=== PATIENT | female | born 1970 | race Caucasian/White ===

== ENCOUNTER 2021-10-02 12:41 | Inpatient (IN) | payer MEDICAID ==
[~2021-10-02] VITALS: Ht 160 cm; Wt 89.8 kg
[~2021-10-02 12:41] MED LIST: NOCURR
[2021-10-02] MEDS ORDERED: ZOLPIDEM TARTRATE 10 MG TABLET PO PRN (13:00)
[2021-10-02] MEDS ORDERED: HALOPERIDOL 5 MG TABLET PO PRN (13:00)
[2021-10-02 14:01] LABS: GLUCOMETER DEV NAME(LOC) POC.BV
[2021-10-02 16:22] VITALS: BP 128/83
[2021-10-02] MEDS: LORazepam 2 MG TABLET PO PRN (19:35)
[2021-10-02 20:31] VITALS: BP 111/58
[2021-10-02 21:31] VITALS: BP 140/74
[2021-10-02 22:31] VITALS: BP 114/59
[2021-10-03] VITALS (10 sets, daily range): BP systolic 110–133; BP diastolic 67–82
[2021-10-03] MEDS: LORazepam 2 MG TABLET PO PRN ×2 (05:13→11:29)
[2021-10-03 08:06] LABS: BASOPHILS % (AUTO) 0.1 % (0.0-2.0); EOSINOPHILS % (AUTO) 0.2 % (1.0-6.0); HEMATOCRIT 33.9 % (36-46); HEMOGLOBIN 11.5 g/dL (12.0-16.0); LYMPHOCYTES # (AUTO) 0.7 K/uL (1.0-4.8); LYMPHOCYTES % (AUTO) 16.9 % (22.0-44.0); MEAN CORPUSCULAR HEMOGLOBIN 32.3 pg (26.0-34.0); MEAN CORPUSCULAR HGB CONC 33.9 G/dL (31.0-37.0); MEAN CORPUSCULAR VOLUME 95 fL (80-100); MONOCYTES # (AUTO) 0.8 K/uL (0.1-1.0); MONOCYTES % (AUTO) 18.9 % (2.0-9.0); NEUTROPHILS # (AUTO) 2.7 K/uL (1.8-7.7); NEUTROPHILS % (AUTO) 63.9 % (40.0-70.0); PLATELET COUNT (AUTO) 251 K/uL (150-450); RED BLOOD CELL COUNT(AUTO) 3.56 MIL/uL (4.00-5.20); RED CELL DISTRIBUTION WIDTH 14.7 % (11.5-14.5)
[2021-10-03 08:15] LABS: HEMOGLOBIN A1C 5.7 % (3.8-5.6)
[2021-10-03 08:36] LABS: ALANINE AMINOTRANSFERASE 26 U/L (12-78); ALBUMIN 3.2 g/dL (3.4-5.0); ALKALINE PHOSPHATASE 71 U/L (46-116); ANION GAP 9 mmol/L (8-16); ASPARTATE AMINOTRANSFERASE 21 U/L (15-37); BILIRUBIN,TOTAL 0.3 mg/dL (0.1-1.0); CALCIUM, TOTAL 8.7 mg/dL (8.8-10.5); CARBON DIOXIDE 28 mmol/L (22-29); CHLORIDE 104 mmol/L (98-107); CHOLESTEROL 160 mg/dL (131-200); CREATININE 0.68 mg/dL (0.60-1.30); FREE T4 (FREE THYROXINE) 1.03 ng/dL (0.76-1.46); GLOMERULAR FILTR. RATE CALC > 60 mL/min (>60); GLUCOSE,RANDOM 91 mg/dL (70-110); HCG,QUANTITATIVE 2 mIU/mL (0-6); HDL CHOLESTEROL 81 mg/dL (40-60); LDL CHOL (CALC.) 70 mg/dL (0-130); POTASSIUM 3.6 mmol/L (3.5-5.1); SODIUM SERUM 141 mmol/L (136-145); TOTAL PROTEIN, SERUM 6.7 g/dL (6.4-8.2); TRIGLYCERIDES 46 mg/dL (15-150); UREA NITROGEN, BLOOD 13 mg/dL (7-18)
[2021-10-03] MEDS ORDERED: LORazepam 2 MG TABLET PO PRN (12:00)
[2021-10-03] MEDS: FLUoxetine HCL 20 MG CAPSULE PO SCH (14:20)
[2021-10-03] MEDS ORDERED: MAGNESIUM HYDROXIDE SUSPENSION 30 ML UDCUP PO PRN (16:30)
[2021-10-03] MEDS ORDERED: LOPERAMIDE HCL 2 MG CAPSULE PO PRN (16:30)
[2021-10-03] MEDS ORDERED: DOCUSATE SODIUM 100 MG CAPSULE PO PRN (16:30)
[2021-10-03] MEDS ORDERED: ONDANSETRON HCL 4 MG TABLET PO PRN (16:30)
[2021-10-03] MEDS ORDERED: MAG HYDROX/AL HYDROX/SIMETH ES 30 ML SUSPENSION UDCUP PO PRN (16:30)
[2021-10-03] MEDS ORDERED: NICOTINE 14 MG/24 HOUR PATCH TD PRN (16:30)
[2021-10-03] MEDS ORDERED: GuaiFENesin/D-METHORPHAN [SUGAR-FREE] 200-20MG/10 ML SYRUP UDCUP PO PRN (16:30)
[2021-10-03] MEDS ORDERED: CloNIDine HCL 0.1 MG TABLET PO PRN (16:30)
[2021-10-03] MEDS ORDERED: ACETAMINOPHEN 325 MG TABLET PO PRN (16:30)
[2021-10-03] MEDS ORDERED: IBUPROFEN 400 MG TABLET PO PRN (16:30)
[2021-10-03] MEDS ORDERED: PETROLATUM,WHITE 28 GM JELLY TP PRN (16:30)
[2021-10-03] MEDS ORDERED: ALBUTEROL SULFATE HFA 90 MCG/PUFF 8 GM INHALER IH PRN (16:30)
[2021-10-03] MEDS: TraZODone HCL 50 MG TABLET PO SCH (20:28)
[2021-10-04 01:28] VITALS: BP 115/68
[2021-10-04 06:19] VITALS: BP 115/68
[2021-10-04 07:23] LABS: APPEARANCE,URINE CLEAR (CLEAR); BILIRUBIN,URINE NEGATIVE (NEGATIVE); GLUCOSE, URINE (UA) NEGATIVE (NEGATIVE); KETONES,URINE NEGATIVE (NEGATIVE); LEUKOCYTE ESTERASE ,URINE NEGATIVE (NEGATIVE); NITRATE,URINE NEGATIVE (NEGATIVE); OCCULT BLOOD,URINE NEGATIVE (NEGATIVE); PROTEIN,URINE NEGATIVE (NEGATIVE); SPECIFIC GRAVITIY, URINE 1.016 (1.003-1.030); UROBILINOGEN,URINE <=1.0 mg/dL (<=1.0)
[2021-10-04] MEDS ORDERED: GuaiFENesin/D-METHORPHAN [SUGAR-FREE] 200-20MG/10 ML SYRUP UDCUP PO PRN (07:30)
[2021-10-04] MEDS ORDERED: LOPERAMIDE HCL 2 MG CAPSULE PO PRN (07:30)
[2021-10-04] MEDS ORDERED: CYANOCOBALAMIN 1,000 MCG/ML VIAL IM ONE (07:30)
[2021-10-04 07:32] LABS: AMPHET/METH SCREEN,URINE NEGATIVE (NEGATIVE); BARBITURATE SCREEN, URINE NEGATIVE (NEGATIVE); BENZODIAZEPINES SCREEN,URINE NEGATIVE (NEGATIVE); CANNABINOID SCREEN,URINE NEGATIVE (NEGATIVE); COCAINE SCREEN,URINE NEGATIVE (NEGATIVE); METHADONE SCREEN, URINE NEGATIVE (NEGATIVE); OPIATE SCREEN,URINE NEGATIVE (NEGATIVE)
[2021-10-04 07:33] LABS: PHENCYCLIDINE SCREEN,URINE NEGATIVE (NEGATIVE)
[2021-10-04] MEDS: LORazepam 2 MG TABLET PO PRN (07:33)
[2021-10-04] MEDS: LORazepam 2 MG TABLET PO SCH ×5 (07:33→20:43)
[2021-10-04 08:37] VITALS: BP 120/70
[2021-10-04] MEDS: MULTIVITAMINS WITH MINERALS, THERAPEUTIC TABLET PO SCH (09:14)
[2021-10-04] MEDS: FOLIC ACID 1 MG TABLET PO SCH (09:14)
[2021-10-04] MEDS: THIAMINE 100 MG TABLET PO SCH ×2 (09:14→16:47)
[2021-10-04] MEDS: FLUoxetine HCL 20 MG CAPSULE PO SCH (09:16)
[2021-10-04 16:23] VITALS: BP 113/81
[2021-10-04] MEDS: TraZODone HCL 50 MG TABLET PO SCH (20:43)
[2021-10-05] VITALS (7 sets, daily range): BP systolic 105–118; BP diastolic 60–77
[2021-10-05] MEDS: MULTIVITAMINS WITH MINERALS, THERAPEUTIC TABLET PO SCH (08:25)
[2021-10-05] MEDS: FOLIC ACID 1 MG TABLET PO SCH (08:26)
[2021-10-05] MEDS: FLUoxetine HCL 20 MG CAPSULE PO SCH (08:26)
[2021-10-05] MEDS: THIAMINE 100 MG TABLET PO SCH ×2 (08:26→16:38)
[2021-10-05] MEDS: LORazepam 2 MG TABLET PO SCH ×4 (08:26→20:32)
[2021-10-05] MEDS: LORazepam 2 MG TABLET PO PRN (11:03)
[2021-10-05] MEDS: TraZODone HCL 50 MG TABLET PO SCH (20:33)
[2021-10-06 00:22] VITALS: BP 101/64
[2021-10-06 02:46] VITALS: BP 101/64
[2021-10-06] MEDS ORDERED: LORazepam 1 MG TABLET PO PRN (07:00)
[2021-10-06 08:00] VITALS: BP 109/69
[2021-10-06] MEDS: MULTIVITAMINS WITH MINERALS, THERAPEUTIC TABLET PO SCH (08:18)
[2021-10-06] MEDS: FLUoxetine HCL 20 MG CAPSULE PO SCH (08:18)
[2021-10-06] MEDS: LORazepam 1 MG TABLET PO SCH ×4 (08:18→20:42)
[2021-10-06] MEDS: FOLIC ACID 1 MG TABLET PO SCH (08:18)
[2021-10-06] MEDS: THIAMINE 100 MG TABLET PO SCH ×2 (08:18→16:32)
[2021-10-06 08:23] VITALS: BP 109/69
[2021-10-06] MEDS: HydrOXYzine PAMOATE 50 MG CAPSULE PO PRN (09:33)
[2021-10-06 16:24] VITALS: BP 121/65
[2021-10-06 16:25] VITALS: BP 121/65
[2021-10-06] MEDS: TraZODone HCL 50 MG TABLET PO SCH (20:38)
[2021-10-07 01:40] VITALS: BP 116/64
[2021-10-07 01:43] VITALS: BP 116/64
[2021-10-07 08:05] VITALS: BP 137/58
[2021-10-07] MEDS: LORazepam 1 MG TABLET PO PRN ×2 (08:20→17:11)
[2021-10-07] MEDS: MULTIVITAMINS WITH MINERALS, THERAPEUTIC TABLET PO SCH (08:21)
[2021-10-07] MEDS: FLUoxetine HCL 20 MG CAPSULE PO SCH (08:21)
[2021-10-07] MEDS: THIAMINE 100 MG TABLET PO SCH ×2 (08:21→17:04)
[2021-10-07] MEDS: FOLIC ACID 1 MG TABLET PO SCH (08:21)
[2021-10-07 08:26] VITALS: BP 137/58
[2021-10-07] MEDS: HydrOXYzine PAMOATE 50 MG CAPSULE PO PRN (10:02)
[2021-10-07] MEDS: NALTREXONE HCL 50 MG TABLET PO SCH (14:48)
[2021-10-07 16:00] VITALS: BP 109/73
[2021-10-07 16:23] VITALS: BP 109/73
[2021-10-07] MEDS: TraZODone HCL 50 MG TABLET PO SCH (20:58)
[2021-10-08 00:47] VITALS: BP 111/68
[2021-10-08 00:49] VITALS: BP 111/68
[2021-10-08] MEDS: FOLIC ACID 1 MG TABLET PO SCH (08:37)
[2021-10-08] MEDS: MULTIVITAMINS WITH MINERALS, THERAPEUTIC TABLET PO SCH (08:37)
[2021-10-08] MEDS: FLUoxetine HCL 20 MG CAPSULE PO SCH (08:37)
[2021-10-08] MEDS: NALTREXONE HCL 50 MG TABLET PO SCH (08:37)
[2021-10-08] MEDS: THIAMINE 100 MG TABLET PO SCH (08:37)
[2021-10-08] MEDS: HydrOXYzine PAMOATE 50 MG CAPSULE PO PRN (08:44)
[2021-10-08 09:00] VITALS: BP 106/66
[2021-10-08 11:26] LABS: GLUCOMETER DEV NAME(LOC) POC.BV
[2021-10-08] MEDS ORDERED: TRAZ-252 PO (13:50)
[2021-10-08] MEDS ORDERED: THIA100T80 PO (13:50)
[2021-10-08] MEDS ORDERED: PROZ20 PO (13:50)
[2021-10-08] MEDS ORDERED: NALT50TA PO (13:50)
== END 2021-10-08 14:25 | disposition home or self-care (01) | DRG 751 ==
LOC: B2S 13:39
PROVIDERS: ADMIT Psychiatry & Neurology Child & Adolescent Psychiatry; ATTEND Psychiatry & Neurology Child & Adolescent Psychiatry
DX: F33.2 Major depressive disorder, recurrent severe without psychotic features (principal); D64.9 Anemia, unspecified; Z20.822 Contact with and (suspected) exposure to COVID-19; D72.819 Decreased white blood cell count, unspecified; E66.9 Obesity, unspecified; E78.5 Hyperlipidemia, unspecified; F10.10 Alcohol abuse, uncomplicated; F41.0 Panic disorder [episodic paroxysmal anxiety]; I10 Essential (primary) hypertension; M19.90 Unspecified osteoarthritis, unspecified site; Z68.35 Body mass index [BMI] 35.0-35.9, adult; Z59.00 Homelessness unspecified
CPT/HCPCS: 80053; 80061; 80307; 81003; 83036; 84436; 84439; 84443; 84702; 85025; G0480; J3420

== ENCOUNTER 2021-10-27 12:09 | Inpatient (IN) | payer MEDICAID ==
[~2021-10-27] VITALS: Ht 160 cm; Wt 85.9 kg
[~2021-10-27 12:09] MED LIST changes: +NALT50TA PO; -NOCURR; +PROZ20 PO; +THIA100T80 PO; +TRAZ-252 PO
[2021-10-27 19:30] VITALS: BP 138/66
[2021-10-27] MEDS ORDERED: ZOLPIDEM TARTRATE 10 MG TABLET PO PRN (19:30)
[2021-10-27] MEDS: LORazepam 2 MG TABLET PO PRN (19:57)
[2021-10-27 20:03] VITALS: BP 138/66
[2021-10-27 20:30] VITALS: BP 135/67
[2021-10-27 21:30] VITALS: BP 130/75
[2021-10-27 22:30] VITALS: BP 115/66
[2021-10-28] VITALS (8 sets, daily range): BP systolic 103–145; BP diastolic 60–98
[2021-10-28] MEDS ORDERED: PNEUMOCOCCAL VACCINE POLYVALENT 0.5 ML VIAL [PPSV23] IM. ONE (01:45)
[2021-10-28] MEDS: LORazepam 2 MG TABLET PO PRN ×3 (06:04→17:17)
[2021-10-28 07:34] LABS: BASOPHILS % (AUTO) 0.4 % (0.0-2.0); EOSINOPHILS % (AUTO) 1.2 % (1.0-6.0); HEMATOCRIT 34.3 % (36-46); HEMOGLOBIN 11.5 g/dL (12.0-16.0); LYMPHOCYTES # (AUTO) 1.2 K/uL (1.0-4.8); LYMPHOCYTES % (AUTO) 32.4 % (22.0-44.0); MEAN CORPUSCULAR HEMOGLOBIN 32.5 pg (26.0-34.0); MEAN CORPUSCULAR HGB CONC 33.5 G/dL (31.0-37.0); MEAN CORPUSCULAR VOLUME 97 fL (80-100); MONOCYTES # (AUTO) 0.4 K/uL (0.1-1.0); MONOCYTES % (AUTO) 10.2 % (2.0-9.0); NEUTROPHILS # (AUTO) 2.1 K/uL (1.8-7.7); NEUTROPHILS % (AUTO) 55.8 % (40.0-70.0); PLATELET COUNT (AUTO) 246 K/uL (150-450); RED BLOOD CELL COUNT(AUTO) 3.53 MIL/uL (4.00-5.20); RED CELL DISTRIBUTION WIDTH 14.2 % (11.5-14.5)
[2021-10-28 07:59] LABS: HEMOGLOBIN A1C 5.4 % (3.8-5.6)
[2021-10-28 08:04] LABS: ALANINE AMINOTRANSFERASE 21 U/L (12-78); ALBUMIN 3.1 g/dL (3.4-5.0); ALKALINE PHOSPHATASE 61 U/L (46-116); ANION GAP 4 mmol/L (8-16); ASPARTATE AMINOTRANSFERASE 17 U/L (15-37); BILIRUBIN,TOTAL 0.3 mg/dL (0.1-1.0); CALCIUM, TOTAL 8.6 mg/dL (8.8-10.5); CARBON DIOXIDE 30 mmol/L (22-29); CHLORIDE 105 mmol/L (98-107); CHOL/HDL RATIO 2.3 (3.9-5.7); CHOLESTEROL 144 mg/dL (131-200); CREATININE 0.64 mg/dL (0.60-1.30); GLOMERULAR FILTR. RATE CALC > 60 mL/min (>60); GLUCOSE,RANDOM 80 mg/dL (70-110); HDL CHOLESTEROL 64 mg/dL (40-60); LDL CHOL (CALC.) 65 mg/dL (0-130); POTASSIUM 3.8 mmol/L (3.5-5.1); SODIUM SERUM 139 mmol/L (136-145); THYROID STIMULATING HORMONE 0.45 uIU/mL (0.36-3.74); TOTAL PROTEIN, SERUM 6.5 g/dL (6.4-8.2); TRIGLYCERIDES 73 mg/dL (15-150); UREA NITROGEN, BLOOD 16 mg/dL (7-18)
[2021-10-28] MEDS ORDERED: LORazepam 2 MG TABLET PO ONE (11:00)
[2021-10-28] MEDS ORDERED: GuaiFENesin/D-METHORPHAN [SUGAR-FREE] 200-20MG/10 ML SYRUP UDCUP PO PRN (11:45)
[2021-10-28] MEDS ORDERED: MAGNESIUM HYDROXIDE SUSPENSION 30 ML UDCUP PO PRN (11:45)
[2021-10-28] MEDS ORDERED: CloNIDine HCL 0.1 MG TABLET PO PRN (11:45)
[2021-10-28] MEDS ORDERED: MAG HYDROX/AL HYDROX/SIMETH ES 30 ML SUSPENSION UDCUP PO PRN (11:45)
[2021-10-28] MEDS ORDERED: DOCUSATE SODIUM 100 MG CAPSULE PO PRN (11:45)
[2021-10-28] MEDS ORDERED: IBUPROFEN 400 MG TABLET PO PRN (11:45)
[2021-10-28] MEDS ORDERED: NICOTINE 14 MG/24 HOUR PATCH TD PRN (11:45)
[2021-10-28] MEDS ORDERED: ALBUTEROL SULFATE HFA 90 MCG/PUFF 8 GM INHALER IH PRN (11:45)
[2021-10-28] MEDS ORDERED: ACETAMINOPHEN 325 MG TABLET PO PRN (11:45)
[2021-10-28] MEDS ORDERED: LOPERAMIDE HCL 2 MG CAPSULE PO PRN (11:45)
[2021-10-28] MEDS ORDERED: ONDANSETRON HCL 4 MG TABLET PO PRN (11:45)
[2021-10-28] MEDS ORDERED: PETROLATUM,WHITE 28 GM JELLY TP PRN (11:45)
[2021-10-28] MEDS: HALOPERIDOL 5 MG TABLET PO PRN (12:47)
[2021-10-28] MEDS: THIAMINE 100 MG TABLET PO SCH (16:27)
[2021-10-28] MEDS: FLUoxetine HCL 20 MG CAPSULE PO SCH (20:11)
[2021-10-28] MEDS: TraZODone HCL 50 MG TABLET PO SCH (20:35)
[2021-10-29 02:00] VITALS: BP 120/68
[2021-10-29 06:42] VITALS: BP 128/63
[2021-10-29 06:46] VITALS: BP 128/63
[2021-10-29 07:16] LABS: AMPHET/METH SCREEN,URINE NEGATIVE (NEGATIVE); BARBITURATE SCREEN, URINE NEGATIVE (NEGATIVE); BENZODIAZEPINES SCREEN,URINE POSITIVE (NEGATIVE); CANNABINOID SCREEN,URINE NEGATIVE (NEGATIVE); COCAINE SCREEN,URINE NEGATIVE (NEGATIVE); METHADONE SCREEN, URINE NEGATIVE (NEGATIVE); OPIATE SCREEN,URINE NEGATIVE (NEGATIVE)
[2021-10-29 07:30] LABS: PHENCYCLIDINE SCREEN,URINE NEGATIVE (NEGATIVE)
[2021-10-29 08:04] VITALS: BP 106/66
[2021-10-29 08:08] LABS: APPEARANCE,URINE CLEAR (CLEAR); BILIRUBIN,URINE NEGATIVE (NEGATIVE); GLUCOSE, URINE (UA) NEGATIVE (NEGATIVE); KETONES,URINE NEGATIVE (NEGATIVE); LEUKOCYTE ESTERASE ,URINE NEGATIVE (NEGATIVE); NITRATE,URINE NEGATIVE (NEGATIVE); OCCULT BLOOD,URINE NEGATIVE (NEGATIVE); PH,URINE 5.5 (5.0-8.0); PROTEIN,URINE NEGATIVE (NEGATIVE); SPECIFIC GRAVITIY, URINE 1.004 (1.003-1.030); UROBILINOGEN,URINE <=1.0 mg/dL (<=1.0)
[2021-10-29] MEDS: THIAMINE 100 MG TABLET PO SCH ×2 (08:18→16:00)
[2021-10-29] MEDS: FLUoxetine HCL 20 MG CAPSULE PO SCH (08:18)
[2021-10-29 08:49] LABS: BACTERIA,URINE None Seen /HPF (None Seen); RBC,URINE None Seen /HPF (0-2); WBC,URINE None Seen /HPF (0-5)
[2021-10-29] MEDS: LORazepam 2 MG TABLET PO PRN ×2 (10:37→15:57)
[2021-10-29 16:08] VITALS: BP 109/64
[2021-10-29 16:59] VITALS: BP 109/64
[2021-10-29] MEDS: TraZODone HCL 50 MG TABLET PO SCH (20:15)
[2021-10-30 00:28] VITALS: BP 105/63
[2021-10-30 03:19] VITALS: BP 118/64
[2021-10-30 08:03] VITALS: BP 118/67
[2021-10-30] MEDS: FLUoxetine HCL 20 MG CAPSULE PO SCH (08:23)
[2021-10-30] MEDS: THIAMINE 100 MG TABLET PO SCH ×2 (08:23→16:02)
[2021-10-30] MEDS: LORazepam 2 MG TABLET PO PRN (11:57)
[2021-10-30] MEDS: HALOPERIDOL 5 MG TABLET PO PRN (12:36)
[2021-10-30 16:03] VITALS: BP 116/66
[2021-10-30] MEDS: TraZODone HCL 50 MG TABLET PO SCH (20:22)
[2021-10-31 00:41] VITALS: BP 111/64
[2021-10-31] MEDS: FLUoxetine HCL 20 MG CAPSULE PO SCH (08:09)
[2021-10-31] MEDS: THIAMINE 100 MG TABLET PO SCH ×2 (08:09→17:02)
[2021-10-31 08:11] VITALS: BP 116/65
[2021-10-31] MEDS: LORazepam 2 MG TABLET PO PRN ×2 (10:31→15:18)
[2021-10-31] MEDS: HALOPERIDOL 5 MG TABLET PO PRN ×2 (10:31→15:18)
[2021-10-31] MEDS: TraZODone HCL 50 MG TABLET PO SCH (20:08)
[2021-11-01 05:43] VITALS: BP 109/69
[2021-11-01 08:10] VITALS: BP 109/71
[2021-11-01] MEDS: FLUoxetine HCL 20 MG CAPSULE PO SCH (08:10)
[2021-11-01] MEDS: THIAMINE 100 MG TABLET PO SCH ×2 (08:10→16:02)
[2021-11-01] MEDS: HALOPERIDOL 5 MG TABLET PO PRN ×2 (09:57→16:02)
[2021-11-01] MEDS: LORazepam 2 MG TABLET PO PRN ×2 (09:57→16:03)
[2021-11-01 16:18] VITALS: BP 115/66
[2021-11-01] MEDS: TraZODone HCL 50 MG TABLET PO SCH (20:03)
[2021-11-02 05:44] VITALS: BP 109/66
[2021-11-02 08:21] VITALS: BP 96/63
[2021-11-02] MEDS: THIAMINE 100 MG TABLET PO SCH ×2 (08:24→16:15)
[2021-11-02] MEDS: FLUoxetine HCL 20 MG CAPSULE PO SCH (08:24)
[2021-11-02 09:12] LABS: GLUCOMETER DEV NAME(LOC) POC.BV
[2021-11-02] MEDS: HALOPERIDOL 5 MG TABLET PO PRN ×2 (09:57→13:11)
[2021-11-02] MEDS: LORazepam 2 MG TABLET PO PRN ×2 (09:57→13:12)
[2021-11-02 16:06] VITALS: BP 116/66
[2021-11-02] MEDS: TraZODone HCL 50 MG TABLET PO SCH (20:11)
[2021-11-03 00:18] VITALS: BP 111/63
[2021-11-03 08:07] VITALS: BP 117/100
[2021-11-03] MEDS: FLUoxetine HCL 20 MG CAPSULE PO SCH (08:08)
[2021-11-03] MEDS: NALTREXONE HCL 50 MG TABLET PO SCH (08:08)
[2021-11-03] MEDS: THIAMINE 100 MG TABLET PO SCH ×2 (08:08→16:19)
[2021-11-03] MEDS: LORazepam 2 MG TABLET PO PRN ×2 (09:56→15:37)
[2021-11-03] MEDS: HALOPERIDOL 5 MG TABLET PO PRN (09:57)
[2021-11-03 16:15] VITALS: BP 117/64
[2021-11-03] MEDS: TraZODone HCL 50 MG TABLET PO SCH (20:22)
[2021-11-04 05:30] VITALS: BP 109/62
[2021-11-04 08:05] VITALS: BP 109/67
[2021-11-04] MEDS: THIAMINE 100 MG TABLET PO SCH ×2 (08:24→16:34)
[2021-11-04] MEDS: NALTREXONE HCL 50 MG TABLET PO SCH (08:24)
[2021-11-04] MEDS: FLUoxetine HCL 20 MG CAPSULE PO SCH (08:24)
[2021-11-04] MEDS: LORazepam 2 MG TABLET PO PRN ×2 (10:38→17:13)
[2021-11-04 16:25] VITALS: BP 102/67
[2021-11-04 17:13] VITALS: BP 137/79
[2021-11-04] MEDS: TraZODone HCL 50 MG TABLET PO SCH (20:23)
[2021-11-05 00:35] VITALS: BP 104/65
[2021-11-05 08:06] VITALS: BP 110/69
[2021-11-05] MEDS: FLUoxetine HCL 20 MG CAPSULE PO SCH (08:34)
[2021-11-05] MEDS: NALTREXONE HCL 50 MG TABLET PO SCH (08:35)
[2021-11-05] MEDS: THIAMINE 100 MG TABLET PO SCH (08:35)
[2021-11-05] MEDS ORDERED: TRAZ-252 PO (22:45)
[2021-11-05] MEDS ORDERED: PROZ20 PO (22:45)
[2021-11-05] MEDS ORDERED: NALT50TA PO (22:45)
== END 2021-11-05 13:15 | disposition home or self-care (01) | DRG 751 ==
LOC: B2S 18:59
PROVIDERS: ADMIT Psychiatry & Neurology Child & Adolescent Psychiatry; ATTEND Psychiatry & Neurology Child & Adolescent Psychiatry
PROC: 3E0234Z Introduction of Serum, Toxoid and Vaccine into Muscle, Percutaneous Approach (ICD-10-PCS; principal; 2021-10-28)
DX: F33.2 Major depressive disorder, recurrent severe without psychotic features (principal); R45.851 Suicidal ideations; E78.5 Hyperlipidemia, unspecified; F41.9 Anxiety disorder, unspecified; I10 Essential (primary) hypertension; Z20.822 Contact with and (suspected) exposure to COVID-19; M17.10 Unilateral primary osteoarthritis, unspecified knee; Z59.00 Homelessness unspecified; Y90.9 Presence of alcohol in blood, level not specified; F10.139 Alcohol abuse with withdrawal, unspecified; Z71.51 Drug abuse counseling and surveillance of drug abuser; Z23 Encounter for immunization
CPT/HCPCS: 80053; 80061; 80307; 81001; 83036; 84439; 84443; 85025; 87081; 90732

== ENCOUNTER 2022-05-08 17:19 | Inpatient (IN) | payer MEDICAID, OTHER ==
[~2022-05-08] VITALS: Ht 160 cm; Wt 81.2 kg
[~2022-05-08 17:19] MED LIST changes: -THIA100T80 PO
[2022-05-08 20:46] LABS: GLUCOMETER DEV NAME(LOC) POC.BV
[2022-05-08] MEDS ORDERED: INFLUENZA VIRUS VACCINE QVS 2022-23 (6MO+)/PF 60 MCG/0.5 ML SYRINGE IM. ONE (21:15)
[2022-05-09] VITALS (8 sets, daily range): BP systolic 100–124; BP diastolic 50–67
[2022-05-09] MEDS ORDERED: ZOLPIDEM TARTRATE 10 MG TABLET PO PRN (00:30)
[2022-05-09] MEDS: LORazepam 2 MG TABLET PO PRN ×2 (01:09→08:41)
[2022-05-09] MEDS: HALOPERIDOL 5 MG TABLET PO PRN (08:41)
[2022-05-09] MEDS ORDERED: GuaiFENesin/D-METHORPHAN [SUGAR-FREE] 200-20MG/10 ML SYRUP UDCUP PO PRN (09:45)
[2022-05-09] MEDS ORDERED: LOPERAMIDE HCL 2 MG CAPSULE PO PRN (09:45)
[2022-05-09] MEDS ORDERED: LORazepam 2 MG TABLET PO PRN (09:45)
[2022-05-09] MEDS ORDERED: CYANOCOBALAMIN 1,000 MCG/ML VIAL IM ONE (09:45)
[2022-05-09] MEDS ORDERED: ACETAMINOPHEN 325 MG TABLET PO PRN (10:45)
[2022-05-09] MEDS: FOLIC ACID 1 MG TABLET PO SCH (11:10)
[2022-05-09] MEDS: MULTIVITAMINS WITH MINERALS, THERAPEUTIC TABLET PO SCH (11:10)
[2022-05-09] MEDS: THIAMINE 100 MG TABLET PO SCH ×2 (11:11→17:10)
[2022-05-09] MEDS: TraZODone HCL 50 MG TABLET PO SCH (20:09)
[2022-05-10] VITALS (8 sets, daily range): BP systolic 94–113; BP diastolic 49–84
[2022-05-10] MEDS ORDERED: LORazepam 2 MG TABLET PO PRN (07:00)
[2022-05-10] MEDS ORDERED: MAG HYDROX/AL HYDROX/SIMETH ES 30 ML SUSPENSION UDCUP PO PRN (07:00)
[2022-05-10] MEDS ORDERED: DOCUSATE SODIUM 100 MG CAPSULE PO PRN (07:00)
[2022-05-10] MEDS ORDERED: LOPERAMIDE HCL 2 MG CAPSULE PO PRN (07:00)
[2022-05-10] MEDS ORDERED: CloNIDine HCL 0.1 MG TABLET PO PRN (07:00)
[2022-05-10] MEDS ORDERED: ONDANSETRON HCL 4 MG TABLET PO PRN (07:00)
[2022-05-10] MEDS ORDERED: ALBUTEROL SULFATE HFA 90 MCG/PUFF 8 GM INHALER IH PRN (07:00)
[2022-05-10] MEDS ORDERED: MAGNESIUM HYDROXIDE SUSPENSION 30 ML UDCUP PO PRN (07:00)
[2022-05-10] MEDS ORDERED: IBUPROFEN 400 MG TABLET PO PRN (07:00)
[2022-05-10] MEDS ORDERED: ACETAMINOPHEN 325 MG TABLET PO PRN (07:00)
[2022-05-10] MEDS ORDERED: PETROLATUM,WHITE 28 GM JELLY TP PRN (07:00)
[2022-05-10] MEDS: FLUoxetine HCL 20 MG CAPSULE PO SCH (08:56)
[2022-05-10] MEDS: FOLIC ACID 1 MG TABLET PO SCH (08:56)
[2022-05-10] MEDS: MULTIVITAMINS WITH MINERALS, THERAPEUTIC TABLET PO SCH (08:56)
[2022-05-10] MEDS: THIAMINE 100 MG TABLET PO SCH ×2 (08:56→16:16)
[2022-05-10] MEDS: LORazepam 2 MG TABLET PO SCH ×4 (08:56→21:41)
[2022-05-10] MEDS: TraZODone HCL 50 MG TABLET PO SCH (21:41)
[2022-05-11 06:45] LABS: BASOPHILS % (AUTO) 0.8 % (0.0-2.0); HEMATOCRIT 36.4 % (36-46); HEMOGLOBIN 11.8 g/dL (12.0-16.0); MEAN CORPUSCULAR HEMOGLOBIN 29.8 pg (26.0-34.0); MEAN CORPUSCULAR HGB CONC 32.5 G/dL (31.0-37.0); MEAN CORPUSCULAR VOLUME 92 fL (80-100); MONOCYTES # (AUTO) 0.5 K/uL (0.1-1.0); MONOCYTES % (AUTO) 14.8 % (2.0-9.0); NEUTROPHILS # (AUTO) 1.8 K/uL (1.8-7.7); NEUTROPHILS % (AUTO) 53.4 % (40.0-70.0); PLATELET COUNT (AUTO) 231 K/uL (150-450); RED BLOOD CELL COUNT(AUTO) 3.97 MIL/uL (4.00-5.20); RED CELL DISTRIBUTION WIDTH 16.4 % (11.5-14.5)
[2022-05-11 07:14] LABS: ALANINE AMINOTRANSFERASE 15 U/L (12-78); ALBUMIN 3.2 g/dL (3.4-5.0); ALKALINE PHOSPHATASE 64 U/L (46-116); ANION GAP 5 mmol/L (8-16); ASPARTATE AMINOTRANSFERASE 19 U/L (15-37); BILIRUBIN,TOTAL 0.3 mg/dL (0.1-1.0); CALCIUM, TOTAL 9.6 mg/dL (8.8-10.5); CARBON DIOXIDE 31 mmol/L (22-29); CHLORIDE 104 mmol/L (98-107); CHOL/HDL RATIO 2.6 (3.9-5.7); CHOLESTEROL 198 mg/dL (131-200); GLOMERULAR FILTR. RATE CALC > 60 mL/min (>60); GLUCOSE,RANDOM 91 mg/dL (70-110); HDL CHOLESTEROL 75 mg/dL (40-60); LDL CHOL (CALC.) 103 mg/dL (0-130); POTASSIUM 4.2 mmol/L (3.5-5.1); SODIUM SERUM 140 mmol/L (136-145); THYROID STIMULATING HORMONE 1.29 uIU/mL (0.36-3.74); TOTAL PROTEIN, SERUM 6.7 g/dL (6.4-8.2); TRIGLYCERIDES 100 mg/dL (15-150); UREA NITROGEN, BLOOD 14 mg/dL (7-18)
[2022-05-11 08:14] VITALS: BP 121/82
[2022-05-11] MEDS: LORazepam 2 MG TABLET PO SCH ×4 (08:15→21:04)
[2022-05-11] MEDS: THIAMINE 100 MG TABLET PO SCH ×2 (08:15→17:20)
[2022-05-11] MEDS: FOLIC ACID 1 MG TABLET PO SCH (08:15)
[2022-05-11] MEDS: MULTIVITAMINS WITH MINERALS, THERAPEUTIC TABLET PO SCH (08:15)
[2022-05-11] MEDS: FLUoxetine HCL 20 MG CAPSULE PO SCH (08:15)
[2022-05-11 09:45] VITALS: BP 100/80
[2022-05-11 20:00] VITALS: BP 108/68
[2022-05-11] MEDS: TraZODone HCL 50 MG TABLET PO SCH (21:04)
[2022-05-12] MEDS ORDERED: LORazepam 1 MG TABLET PO PRN (07:00)
[2022-05-12 08:19] VITALS: BP 100/64
[2022-05-12] MEDS: FLUoxetine HCL 20 MG CAPSULE PO SCH (08:58)
[2022-05-12] MEDS: LORazepam 1 MG TABLET PO SCH ×4 (08:58→20:13)
[2022-05-12] MEDS: FOLIC ACID 1 MG TABLET PO SCH (08:58)
[2022-05-12] MEDS: MULTIVITAMINS WITH MINERALS, THERAPEUTIC TABLET PO SCH (08:58)
[2022-05-12] MEDS: THIAMINE 100 MG TABLET PO SCH ×2 (08:58→16:01)
[2022-05-12 10:04] VITALS: BP 101/72
[2022-05-12] MEDS: TraZODone HCL 50 MG TABLET PO SCH (20:13)
[2022-05-12 20:30] VITALS: BP 115/65
[2022-05-13 08:14] VITALS: BP 100/61
[2022-05-13] MEDS: LORazepam 1 MG TABLET PO PRN ×2 (08:35→16:41)
[2022-05-13] MEDS: THIAMINE 100 MG TABLET PO SCH ×2 (08:35→16:41)
[2022-05-13] MEDS: MULTIVITAMINS WITH MINERALS, THERAPEUTIC TABLET PO SCH (08:36)
[2022-05-13] MEDS: FLUoxetine HCL 20 MG CAPSULE PO SCH (08:36)
[2022-05-13] MEDS: FOLIC ACID 1 MG TABLET PO SCH (08:36)
[2022-05-13 20:00] VITALS: BP 109/86
[2022-05-13] MEDS: TraZODone HCL 50 MG TABLET PO SCH (20:15)
[2022-05-14] VITALS (7 sets, daily range): BP systolic 105–117; BP diastolic 62–78
[2022-05-14] MEDS: LORazepam 1 MG TABLET PO PRN (04:09)
[2022-05-14] MEDS: FOLIC ACID 1 MG TABLET PO SCH (08:45)
[2022-05-14] MEDS: THIAMINE 100 MG TABLET PO SCH ×2 (08:45→16:26)
[2022-05-14] MEDS: HydrOXYzine PAMOATE 50 MG CAPSULE PO PRN ×2 (08:45→20:19)
[2022-05-14] MEDS: FLUoxetine HCL 20 MG CAPSULE PO SCH (08:45)
[2022-05-14] MEDS: HALOPERIDOL 5 MG TABLET PO PRN (08:45)
[2022-05-14] MEDS: MULTIVITAMINS WITH MINERALS, THERAPEUTIC TABLET PO SCH (08:45)
[2022-05-14] MEDS: TraZODone HCL 50 MG TABLET PO SCH (21:00)
[2022-05-15] MEDS: THIAMINE 100 MG TABLET PO SCH ×2 (08:10→16:42)
[2022-05-15] MEDS: FLUoxetine HCL 20 MG CAPSULE PO SCH (08:10)
[2022-05-15] MEDS: FOLIC ACID 1 MG TABLET PO SCH (08:10)
[2022-05-15] MEDS: MULTIVITAMINS WITH MINERALS, THERAPEUTIC TABLET PO SCH (08:18)
[2022-05-15] MEDS: HydrOXYzine PAMOATE 50 MG CAPSULE PO PRN ×2 (09:04→15:48)
[2022-05-15 09:25] VITALS: BP 109/53
[2022-05-15 10:06] LABS: GLUCOMETER DEV NAME(LOC) POC.BV
[2022-05-15 12:36] LABS: GLUCOMETER DEV NAME(LOC) POC.BV
[2022-05-15] MEDS: HALOPERIDOL 5 MG TABLET PO PRN (16:42)
[2022-05-15 20:03] VITALS: BP 116/64
[2022-05-15] MEDS: TraZODone HCL 50 MG TABLET PO SCH (20:33)
[2022-05-16 08:05] VITALS: BP 119/73
[2022-05-16] MEDS: MULTIVITAMINS WITH MINERALS, THERAPEUTIC TABLET PO SCH (08:52)
[2022-05-16] MEDS: FOLIC ACID 1 MG TABLET PO SCH (08:52)
[2022-05-16] MEDS: FLUoxetine HCL 20 MG CAPSULE PO SCH (08:52)
[2022-05-16] MEDS: THIAMINE 100 MG TABLET PO SCH ×2 (08:52→16:15)
[2022-05-16] MEDS: HydrOXYzine PAMOATE 50 MG CAPSULE PO PRN ×2 (08:53→14:16)
[2022-05-16] MEDS ORDERED: FLUO20CA36 PO (10:13)
[2022-05-16] MEDS ORDERED: RISP2TAB45 PO (11:55)
[2022-05-16 20:30] VITALS: BP 117/65
[2022-05-16] MEDS: TraZODone HCL 50 MG TABLET PO SCH (21:01)
[2022-05-17 08:40] VITALS: BP 103/60
[2022-05-17] MEDS: THIAMINE 100 MG TABLET PO SCH ×2 (09:04→16:32)
[2022-05-17] MEDS: FLUoxetine HCL 20 MG CAPSULE PO SCH (09:06)
[2022-05-17] MEDS: FOLIC ACID 1 MG TABLET PO SCH (09:06)
[2022-05-17] MEDS: MULTIVITAMINS WITH MINERALS, THERAPEUTIC TABLET PO SCH (09:06)
[2022-05-17] MEDS: HALOPERIDOL 5 MG TABLET PO PRN (14:54)
[2022-05-17] MEDS: TraZODone HCL 50 MG TABLET PO SCH (20:59)
[2022-05-17 21:48] VITALS: BP 108/60
[2022-05-18 08:00] VITALS: BP 103/57
[2022-05-18] MEDS: FLUoxetine HCL 20 MG CAPSULE PO SCH (08:19)
[2022-05-18] MEDS: FOLIC ACID 1 MG TABLET PO SCH (08:19)
[2022-05-18] MEDS: THIAMINE 100 MG TABLET PO SCH ×2 (08:19→16:15)
[2022-05-18] MEDS: MULTIVITAMINS WITH MINERALS, THERAPEUTIC TABLET PO SCH (08:19)
[2022-05-18] MEDS: HydrOXYzine PAMOATE 50 MG CAPSULE PO PRN ×2 (12:10→16:15)
[2022-05-18 20:54] VITALS: BP 101/58
[2022-05-18] MEDS: TraZODone HCL 50 MG TABLET PO SCH (21:03)
[2022-05-19] MEDS: HALOPERIDOL 5 MG TABLET PO PRN (08:04)
[2022-05-19] MEDS: MULTIVITAMINS WITH MINERALS, THERAPEUTIC TABLET PO SCH (08:04)
[2022-05-19] MEDS: FLUoxetine HCL 20 MG CAPSULE PO SCH (08:04)
[2022-05-19 08:11] VITALS: BP 129/76
[2022-05-19] MEDS: TraZODone HCL 50 MG TABLET PO SCH (20:40)
[2022-05-19 21:01] VITALS: BP 130/74
[2022-05-20 08:00] VITALS: BP 110/70
[2022-05-20] MEDS: MULTIVITAMINS WITH MINERALS, THERAPEUTIC TABLET PO SCH (08:13)
[2022-05-20] MEDS: FLUoxetine HCL 20 MG CAPSULE PO SCH (08:13)
[2022-05-20] MEDS: HydrOXYzine PAMOATE 50 MG CAPSULE PO PRN (08:17)
[2022-05-20] MEDS: HALOPERIDOL 5 MG TABLET PO PRN (09:08)
[2022-05-20] MEDS: TraZODone HCL 50 MG TABLET PO SCH (20:09)
[2022-05-21 02:00] VITALS: BP 106/62
[2022-05-21] MEDS: MULTIVITAMINS WITH MINERALS, THERAPEUTIC TABLET PO SCH (09:02)
[2022-05-21] MEDS: FLUoxetine HCL 20 MG CAPSULE PO SCH (09:02)
[2022-05-21 12:14] VITALS: BP 104/38
[2022-05-21] MEDS: HALOPERIDOL 5 MG TABLET PO PRN (13:01)
[2022-05-21 14:00] VITALS: BP 113/51
[2022-05-21] MEDS: HydrOXYzine PAMOATE 50 MG CAPSULE PO PRN (17:16)
[2022-05-21] MEDS: TraZODone HCL 50 MG TABLET PO SCH (20:15)
[2022-05-21 20:43] VITALS: BP 108/62
[2022-05-22 08:22] VITALS: BP 107/56
[2022-05-22] MEDS: FLUoxetine HCL 20 MG CAPSULE PO SCH (09:23)
[2022-05-22] MEDS: MULTIVITAMINS WITH MINERALS, THERAPEUTIC TABLET PO SCH (09:23)
[2022-05-22] MEDS: HALOPERIDOL 5 MG TABLET PO PRN (09:23)
[2022-05-22 12:10] LABS: GLUCOMETER DEV NAME(LOC) POC.BV
[2022-05-22] MEDS: HydrOXYzine PAMOATE 50 MG CAPSULE PO PRN (16:52)
[2022-05-22] MEDS: TraZODone HCL 50 MG TABLET PO SCH (20:14)
[2022-05-23] MEDS: FLUoxetine HCL 20 MG CAPSULE PO SCH (08:51)
[2022-05-23] MEDS: HALOPERIDOL 5 MG TABLET PO PRN ×2 (08:52→13:39)
[2022-05-23] MEDS: MULTIVITAMINS WITH MINERALS, THERAPEUTIC TABLET PO SCH (08:52)
[2022-05-23 10:18] VITALS: BP 96/59
[2022-05-23] MEDS: HydrOXYzine PAMOATE 50 MG CAPSULE PO PRN (15:56)
[2022-05-23 20:12] VITALS: BP 114/70
[2022-05-23] MEDS: TraZODone HCL 50 MG TABLET PO SCH (20:49)
[2022-05-24] MEDS ORDERED: TRAZ-252 PO ×2 (08:04→09:07)
[2022-05-24] MEDS ORDERED: FLUO20CA36 PO ×2 (08:04→09:07)
[2022-05-24 08:16] VITALS: BP 100/62
[2022-05-24] MEDS: MULTIVITAMINS WITH MINERALS, THERAPEUTIC TABLET PO SCH (08:27)
[2022-05-24] MEDS: FLUoxetine HCL 20 MG CAPSULE PO SCH (08:27)
== END 2022-05-24 10:00 | disposition home or self-care (01) | DRG 751 ==
LOC: B3A 05-09 00:28
PROVIDERS: ADMIT Psychiatry & Neurology Psychiatry; ATTEND Psychiatry & Neurology Psychiatry
DX: F33.2 Major depressive disorder, recurrent severe without psychotic features (principal); R45.851 Suicidal ideations; E78.5 Hyperlipidemia, unspecified; Z20.822 Contact with and (suspected) exposure to COVID-19; F10.20 Alcohol dependence, uncomplicated; F11.20 Opioid dependence, uncomplicated; F41.9 Anxiety disorder, unspecified; I10 Essential (primary) hypertension; M19.90 Unspecified osteoarthritis, unspecified site; Z79.899 Other long term (current) drug therapy; Z91.51 Personal history of suicidal behavior
CPT/HCPCS: 80053; 80061; 83036; 84443; 85025; 90686; J3420

== ENCOUNTER 2022-05-08 19:50 | Emergency (ER) | payer MEDICAID, OTHER ==
[~2022-05-08] VITALS: Ht 160 cm; Wt 82.0 kg
[2022-05-08 21:33] VITALS: BP 117/80
[2022-05-08 21:51] LABS: COVID AG,FIA SOURCE NASOPHARYNGEAL
[2022-05-08 21:53] LABS: BASOPHILS % (AUTO) 0.4 % (0.0-2.0); EOSINOPHILS % (AUTO) 0.5 % (1.0-6.0); HEMATOCRIT 36.1 % (36-46); HEMOGLOBIN 11.7 g/dL (12.0-16.0); LYMPHOCYTES # (AUTO) 1.5 K/uL (1.0-4.8); LYMPHOCYTES % (AUTO) 33.4 % (22.0-44.0); MEAN CORPUSCULAR HEMOGLOBIN 29.5 pg (26.0-34.0); MEAN CORPUSCULAR HGB CONC 32.4 G/dL (31.0-37.0); MEAN CORPUSCULAR VOLUME 91 fL (80-100); MONOCYTES # (AUTO) 0.5 K/uL (0.1-1.0); MONOCYTES % (AUTO) 10.6 % (2.0-9.0); NEUTROPHILS # (AUTO) 2.4 K/uL (1.8-7.7); NEUTROPHILS % (AUTO) 55.1 % (40.0-70.0); PLATELET COUNT (AUTO) 246 K/uL (150-450); RED BLOOD CELL COUNT(AUTO) 3.96 MIL/uL (4.00-5.20); RED CELL DISTRIBUTION WIDTH 16.5 % (11.5-14.5)
[2022-05-08 22:00] LABS: ANION GAP 6 mmol/L (8-16); CALCIUM, TOTAL 9.1 mg/dL (8.8-10.5); CARBON DIOXIDE 29 mmol/L (22-29); CHLORIDE 102 mmol/L (98-107); CREATININE 0.73 mg/dL (0.60-1.30); GLUCOSE,RANDOM 92 mg/dL (70-110); POTASSIUM 4.3 mmol/L (3.5-5.1); SODIUM SERUM 137 mmol/L (136-145); UREA NITROGEN, BLOOD 11 mg/dL (7-18)
[2022-05-08 22:01] LABS: GLOMERULAR FILTR. RATE CALC > 60 mL/min (>60)
[2022-05-08 22:07] LABS: ALANINE AMINOTRANSFERASE 18 U/L (12-78); ALBUMIN 3.7 g/dL (3.4-5.0); ALKALINE PHOSPHATASE 74 U/L (46-116); ASPARTATE AMINOTRANSFERASE 25 U/L (15-37); BILIRUBIN,TOTAL 0.2 mg/dL (0.1-1.0); TOTAL PROTEIN, SERUM 7.5 g/dL (6.4-8.2)
[2022-05-08 22:23] LABS: AMPHET/METH SCREEN,URINE NEGATIVE (NEGATIVE); BARBITURATE SCREEN, URINE NEGATIVE (NEGATIVE); BENZODIAZEPINES SCREEN,URINE NEGATIVE (NEGATIVE); CANNABINOID SCREEN,URINE NEGATIVE (NEGATIVE); COCAINE SCREEN,URINE NEGATIVE (NEGATIVE); METHADONE SCREEN, URINE NEGATIVE (NEGATIVE); OPIATE SCREEN,URINE NEGATIVE (NEGATIVE); PHENCYCLIDINE SCREEN,URINE NEGATIVE (NEGATIVE)
== END 2022-05-08 23:57 ==
LOC: EMS 19:51
DX: Z04.6 Encounter for general psychiatric examination, requested by authority (principal); Z20.822 Contact with and (suspected) exposure to COVID-19; F31.9 Bipolar disorder, unspecified; F41.9 Anxiety disorder, unspecified
CPT/HCPCS: 99283; 87426; 80053; 85025; 36415; 80307; G0480